=== PATIENT | male | born 1950 | race Caucasian/White ===

== ENCOUNTER 2022-06-22 09:28 | Emergency (ER) | payer OTHER, SELFPAY ==
[2022-06-22] VITALS (21 sets, daily range): BP systolic 98–136; BP diastolic 68–99; PULSE 68–84; RESP 9–16; TEMP 36.6; O2SAT 96–100
--- NOTE | 2022-06-22 09:30 | DI.RAD_ITS ---
Exam(s) XR CHEST 2V PA LATERAL EXAM: XR CHEST 2V PA LATERAL CLINICAL HISTORY: unsteady TECHNIQUE: 2D digital imaging was performed. COMPARISON: No exams were available for comparison FINDINGS: HEART: Normal size. Aorta: Not dilated. PULMONARY VASCULATURE: Normal. LUNGS: Clear. PLEURAL SPACE: No pleural effusion or pneumothorax. BONE:Unremarkable for age. IMPRESSION: No acute abnormality. DATA REPOSITORY: RADIATION DOSE DELIVERED:
--- NOTE | 2022-06-22 09:30 | DI.CT_ITS ---
Exam(s) CT BRAIN NECK CTA EXAM: CT BRAIN NECK CTA CLINICAL HISTORY: dizziness, unsteady, falls. TECHNIQUE: Imaging Protocol: Axial CT angiography was performed with multi-slice acquisition and mu lti-planar and 3D reconstructions. CONTRAST MATERIAL: Intravenous: Omnipaque 350 Contrast volume:structured data in ml COMPARISON: No exams were available for comparison FINDINGS: CT Head W/O and W contrast: Ventricles and Extra axial spaces: Normal in size and morphology for the patient's age. Hemorrhage: None. Cerebral parenchyma: Area of low attenuation seen near the midline in the left occipital lobe. Midline shift: None. Brainstem/Cerebellum: Normal. Calvarium: Normal. Visualized Paranasal sinuses/Mastoids: Mucous retention within right maxillary sinus. Soft Tissues: Unremarkable. Enhancement: Normal. CTA Brain W: Internal Carotid Arteries: Petrous: Normal. Cavernous: Normal. Cerebral: Normal. Middle Cerebral Arteries: Right: No aneurysm, occlusion or significant stenosis. Left: No aneurysm, occlusion or significant stenosis. Anterior Cerebral Arteries: Right: No aneurysm, occlusion or significant stenosis. Left: No aneurysm, occlusion or significant stenosis. Posterior cerebral Arteries: Right: No aneurysm, occlusion or significant stenosis. Left: No aneurysm, occlusion or significant stenosis. Vertebral Arteries: Right: No aneurysm, occlusion or significant stenosis. Left: No aneurysm, occlusion or significant stenosis. Basilar Artery: No aneurysm, occlusion or significant stenosis. CTA Neck W: Common Carotid: Right: Mild calcific plaque at the bulb. No dissection, occlusion or significant stenosis. Left: Mild calcific plaque at the bulb. No dissection, occlusion or significant stenosis. External Carotid: Right: No dissection, occlusion or significant stenosis. Left: No dissection, occlusion or significant stenosis. Internal Carotid: Right: No dissection, occlusion or significant stenosis. Left: No dissection, occlusion or significant stenosis. Vertebral Artery: Right: No dissection, occlusion or significant stenosis. Left: No dissection, occlusion or significant stenosis. Lung Apices: Normal. Bones: Degenerative changes. No acute abnormality. Soft Tissues: Normal. IMPRESSION: 1. Normal CTA examination of the [place]. 2. Area of low attenuation in the left occipital lobe could represent a acute or subacute infarct. R ight maxillary sinus disease. 3. Mild calcific plaque at the common carotid bulbs. No evidence of stenosis or dissection. 4. Findings called to Dr. Rodriguez of the emergency department. RADIATION DOSE DELIVERED: 2,331.57mGy.cm Total DLP DATA REPOSITORY: All CT scans at this facility are submitted to the National Radiology Data Registry (NRDR) Dose Index Registry (DIR) with the [employer] (A[employer]). RADIATION OPTIMIZATION: All CT scans at this facility use at least one of these dose optimization te chniques: automated exposure control; mA and/or kV adjustment per patient size (includes targeted exa ms where dose is matched to clinical indication); or iterative reconstruction.
--- NOTE | 2022-06-22 09:30 | RT.EKG_ITS ---
APPROVED REPORT Exam: Resting ECG Reason for Exam: fatigue Patient Location: E HR:81 bpm ECG Measurements Heart Rate [address] 155 P 52 QRSd 126 QRS -69 QT 400 T -12 QTc 465 Conclusion Sinus rhythm...normal P axis, V-rate 60- 99 Right bundle branch block...QRSd>120, terminal axis(90,270) Inferior infarct, old...Q >35mS, II III aVF sinus rhythm, left axis, RBBB
--- NOTE | 2022-06-22 09:37 | ED.GENADUL_ITS ---
Discharge Plan Disposition Patient Disposition: Home Condition: Stable Discharge Details Clinical Impression: Hyperglycemia, Occipital stroke [facility] Provider: Kenny Castrejon Home Meds and New Rx's Prescriptions: New Trulicity 0.75 mg/0.5 mL pen injector 0.75 mg subcut QWEEK Qty: 2 1RF No Action metformin 1,000 mg tablet 1,000 mg PO DAILY Patient Comments: TAKE ONE TABLET BY MOUTH EVERY DAY atorvastatin 20 mg Tablet 20 mg PO DAILY metoprolol tartrate 50 mg Tablet 50 mg PO BID lisinopril 5 mg Tablet 15 mg PO DAILY hydrochlorothiazide 25 mg Tablet 25 mg PO QAM glipizide 5 mg tablet 5 mg PO DAILY Patient Comments: TAKE ONE TABLET BY MOUTH EVERY DAY empagliflozin 25 mg Tablet 25 mg PO QAM Discharge Instructions Instructions: Ischemic Stroke (DC), Diabetic Hyperglycemia (ED) Additional Instructions: Please take medications as prescribed. Please return to the emergency department for any worsening symptoms. Please follow-up with neurology and your primary care physician. Medical Decision Making 72-year-old male history of hypertension diabetes presents with unsteadiness multiple falls over the last several days feeling generally unwell and having flashing in his visual ackerman intermittent in nature. Patient is nontoxic resting comfortably however was requiring wheelchair to get from car to room due to unsteadiness, cranial nerves II through XII intact, 5 out of 5 strength upper and lower extremities, normal speech. Does have subacute abrasion to bridge of nose and brow line from prior fall on Sunday. Consider intracranial process such as CVA versus ACS versus dehydration versus lecture abnormality versus diabetic complication such as hyper glycemic hyperosmolar state versus infectious etiology such as viral syndrome UTI lower suspicion for pneumonia. Must also consider peripheral vertigo. Screening labs imaging including CT CTA head neck, chest x-ray, urinalysis, trial of light fluids and meclizine. Close reassessment disposition pending results 14: 59 patient resting comfortably no acute distress. Nontoxic nonfocal. Evidence of likely subacute infarct left occipital lobe. Blood sugar downtrending to the 300s. Patient endorses noncompliance with his Tr[facility]icity injection [facility]. I will prescribe him Trulicity he will be given a follow-up appointment with neurology. HPI General Date/Time Provider Initiated Documentation: 06/22/22 09:34 . HPI Narrative: 72-year-old male history of hypertension diabetes presents brought in by son for evaluation of unsteadiness since Sunday feeling unwell, multiple falls, patient was also complaining of flashing lights in bilateral visual ackerman over the last several days intermittent in nature. Related Data Home Medications Medication Instructions Recorded Confirmed atorvastatin 20 mg tablet 20 mg PO DAILY 06/22/22 06/22/22 dulaglutide 0.75 mg/0.5 mL 0.75 mg (0.5 mL) subcut QWEEK #2 mL 06/22/22 subcutaneous pen injector (Trulicity) empagliflozin 25 mg tablet 25 mg PO QAM 06/22/22 06/22/22 glipizide 5 mg tablet 5 mg PO DAILY 06/22/22 06/22/22 hydrochlorothiazide 25 mg tablet 25 mg PO QAM 06/22/22 06/22/22 lisinopril 5 mg tablet 15 mg PO DAILY 06/22/22 06/22/22 metformin 1,000 mg tablet 1,000 mg PO DAILY 06/22/22 06/22/22 metoprolol tartrate 50 mg tablet 50 mg PO BID 06/22/22 06/22/22 Previous Rx's Medication Instructions Recorded dulaglutide 0.75 mg/0.5 mL 0.75 mg (0.5 mL) subcut QWEEK #2 mL 06/22/22 subcutaneous pen injector (Trulicity) Review of Systems Narrative: Review of Systems Constitutional: negative Eyes: negative ENT: negative Cardiovascular: negative Respiratory: negative Gastrointestinal: negative : negative Musculoskeletal: negative Skin: negative Neurologic: Unsteady, falls Psych: negative PFSH All Active Problems (Updated 06/22/22 @ 15:00 by Kenny Castrejon MD) Hyperglycemia (Acute) Occipital stroke (Acute) Social History Smoking/Tobacco Use Status: Former Tobacco Use Smoking risk assessment performed?: Yes Alcohol Intake: current Alcohol Intake frequency: a few times a month Alcohol type: beer Drug use: Never Substance use type: does not use Do you feel safe at home: Yes Do you feel safe in your relationship?: Yes Exam Narrative Exam Narrative: Physical Examination General: alert, awake, cooperative, resting comfortably, no acute distress HEENT: normocephalic, superficial abrasion to brow line and bridge of nose subacute in nature; PERRL, EOM intact, conjunctiva normal; no nasal discharge; moist mucous membranes, oral and pharyngeal mucosa normal, tolerating secretions Neck: supple, trachea midline; full ROM Chest: normal to inspection Respiratory: normal respiratory effort, speaking in full sentences, clear to auscultation, no wheezing, rales or rhonchi Cardiac: regular rate, regular rhythm, S1S2 intact, no murmurs rubs or gallops GI: abdomen soft, non-tender, non-distended; no palpable mass or hepatosplenomegaly Skin: no lesions, rashes or trauma appreciated Neuro: AAOx3, normal speech, moving all extremities cranial nerves II through XII intact, no truncal ataxia however requiring wheelchair to get to room; 5-5 strength upper and lower extremities Psych: Appropriate mood and affect
[2022-06-22 10:11] LABS: Absolute Basophil Count 0.03 10^3/uL (0.0-0.2); Absolute Eosinophil Count 0.16 10^3/uL (0.0-0.7); Absolute Lymphocyte Count 0.81 10^3/uL (1.2-3.4); Absolute Monocyte Count 0.35 10^3/uL (0.1-0.8); Absolute Neutrophil Count 3.85 10^3/uL (1.2-6.7); Basophils % 0.6; Eosinophils % 3.1; HCT 40.4 % (40.0-50.0); Lymphocytes % 15.6; MCH 28.9 pg (27.0-33.0); MCHC 34.7 % (32.0-36.0); MCV 83 fL (80-95); MPV 11.3 fL (8.0-11.0); Monocytes % 6.7; Platelet Count 165 10^3/uL (130-400); RBC 4.85 10^6/uL (4.36-5.78); RDW 12.1 % (11.8-14.1); RDW-SD 36.7 fL
[2022-06-22] MEDS: Normal Saline 500 ML 1000 ML IV (10:26)
[2022-06-22] MEDS: Meclizine 25 MG TAB PO (10:34)
[2022-06-22 10:36] LABS: ALT 12 U/L (16-63); AST 9 U/L (15-37); Albumin 3.5 g/dL (3.4-5.0); Alkaline Phosphatase 89 U/L (46-116); Anion Gap 9.9 mmol/L (3-11); BUN 27 mg/dL (7-18); Bilirubin, Total 0.7 mg/dL (0.2-1.0); CO2 27.1 mmol/L (21.0-32.0); CREATININE 1.7 mg/dL (0.70-1.30); Chloride 94 mmol/L (98-107); Magnesium 2.1 mg/dL (1.8-2.4); Potassium 4.1 mmol/L (3.5-5.1); Sodium 131 mmol/L (136-145); Total Protein 7.3 g/dL (6.4-8.2); Troponin I < 50 ng/L (<or=60)
[2022-06-22 10:37] LABS: ETHANOL BLOOD < 3.0 mg/dL (<10)
[2022-06-22 10:38] LABS: Glucose 600 mg/dL (74-106)
[2022-06-22] MEDS: Insulin REGULAR-Human 100 UNITS/ML UNIT 6 UNITS SC ×2 (10:40→12:57)
[2022-06-22 12:00] LABS: Bilirubin Negative (Negative); Blood Negative (Negative); Clarity Clear (Clear); Glucose >=1000 mg/dL (Negative); Ketones Negative (Negative); Leukocyte Esterase Negative (Negative); Nitrite Negative (Negative); Specific Gravity 1.015 (1.005-1.025); Urobilinogen 0.2 mg/dL (Up to 0.2)
--- NOTE | 2022-06-22 12:15 | DI.MRI_ITS ---
Exam(s) MR BRAIN WO EXAM: MR BRAIN WO CLINICAL HISTORY: abdnormal CT head TECHNIQUE: Multiplanar multisequence MRI of the brain was performed. COMPARISON: CT CT BRAIN NECK CTA from 06/22/2022 FINDINGS: VENTRICLES AND EXTRA AXIAL SPACES: Normal in size and morphology for the patient's age. MIDLINE SHIFT: None. CEREBRAL PARENCHYMA: Area of high signal on T2 and FLAIR images in the posterior left occipital lobe with a mild amount of associated diffusion restriction. There is some peripheral hemosiderin accumul ation. Findings are consistent with a subacute infarct. No additional areas of infarct are seen. T here are minimal white matter changes of small vessel disease. No space-occupying lesion identified. HEMORRHAGE: No acute hemorrhage. BRAINSTEM/CEREBELLUM: Normal. VISUALIZED PARANASAL SINUSES/MASTOIDS:Opacification of the right maxillary sinus. Vasculature: Normal flow void. PITUITARY GLAND: Unremarkable. ORBITS: Unremarkable. IMPRESSION: Subacute infarct in the left occipital lobe. Findings were called to Dr. Rodriguez of theemergency department. DATA REPOSITORY:
[2022-06-22 12:28] LABS: *AMPHETAMINES SCREEN URINE Negative (Negative); *BARBITURATES SCREEN URINE Negative (Negative); *BENZODIAZEPINES SCREEN URINE Negative (Negative); Cannabinoids THC Negative (Negative); Cocaine Screen,Urine Negative (Negative); METHADONE URINE SCREEN Negative (Negative); OPIATES URINE SCREEN Negative (Negative); Tricyclic Antidepressants Negative (Negative)
[2022-06-22] MEDS: Omnipaque 350 MG/ML 100 ML BTL IJ (12:32)
[2022-06-22] MEDS: Normal Saline - Diluent 50 ML VIAL IJ (12:46)
--- NOTE | 2022-06-22 22:47 | NUR.NOTE ---
Referral to Neurology at [facility] per Dr. Ponce for stroke next week. Faxed the referral to Neurology and placed in the care manger's box for follow up assistance.Nursing Note:
== END 2022-06-22 15:19 | disposition home or self-care (01) ==
PROVIDERS: Emergency Provider Emergency Medicine
DX: I63.9 Cerebral infarction, unspecified (principal); E11.65 Type 2 diabetes mellitus with hyperglycemia; I10 Essential (primary) hypertension; S00.31XA Abrasion of nose, initial encounter; S00.81XA Abrasion of other part of head, initial encounter; W19.XXXA Unspecified fall, initial encounter; Z79.85 Long-term (current) use of injectable non-insulin antidiabetic drugs
CPT/HCPCS: 36415; 70496; 70498; 80053; 80307; 93005; 96360; 99285; 70551; 71046; 80320; 81003; 83735; 84443; 84484; 85025; 93010; 99284; J3490

== ENCOUNTER 2023-06-13 04:43 | Outpatient (RCR) | payer OTHER, SELFPAY ==
[2023-05-25] MEDS: Normal Saline Flush 10 ML SYR IVP (08:50)
[2023-05-25 08:57] LABS: Abs Immature Grans 0.07 10^3/uL (0.0-0.06); Absolute Basophil Count 0.06 10^3/uL (0.0-0.2); Absolute Eosinophil Count 0.03 10^3/uL (0.0-0.7); Absolute Lymphocyte Count 1.27 10^3/uL (1.2-3.4); Absolute Monocyte Count 0.89 10^3/uL (0.1-0.8); Absolute Neutrophil Count 4.11 10^3/uL (1.2-6.7); Basophils % 0.9; Eosinophils % 0.5; HCT 28.6 % (40.0-50.0); HGB 9.1 g/dL (13.5-17.5); Immature Grans % 1.1; Lymphocytes % 19.8; MCH 27.2 pg (27.0-33.0); MCHC 31.8 % (32.0-36.0); MCV 86 fL (80-95); MPV 9.6 fL (8.0-11.0); Monocytes % 13.8; Neutrophils % 63.9; Nucleated RBC 0.3 % (0.0-0.3); Platelet Count 408 10^3/uL (130-400); RBC 3.34 10^6/uL (4.36-5.78); RDW 14.2 % (11.8-14.1); RDW-SD 41.8 fL; WBC 6.43 10^3/uL (4.4-10.8)
[2023-05-25 09:20] LABS: ALT 39 U/L (16-63); AST 41 U/L (15-37); Alkaline Phosphatase 91 U/L (46-116); Anion Gap 10.1 mmol/L (3-11); BUN 14 mg/dL (7-18); Bilirubin, Total 0.6 mg/dL (0.2-1.0); CO2 25.9 mmol/L (21.0-32.0); CREATININE 1.5 mg/dL (0.70-1.30); Chloride 100 mmol/L (98-107); Estimated GFR 48.85 (mL/min/1.73m2); FREE T4 1.46 ng/dL (0.76-1.46); Glucose 287 mg/dL (74-106); Magnesium 1.9 mg/dL (1.8-2.4); Potassium 3.9 mmol/L (3.5-5.1); Sodium 136 mmol/L (136-145); TSH 1.77 uIU/Ml (0.36-3.74); Total Protein 7.3 g/dL (6.4-8.2)
[2023-05-25 20:02] LABS: CA 19-9 23 U/mL (<35)
[2023-05-31] MEDS: Normal Saline Flush 10 ML SYR IVP (08:35)
[2023-05-31 09:36] LABS: Abs Immature Grans 0.05 10^3/uL (0.0-0.06); Absolute Eosinophil Count 0.02 10^3/uL (0.0-0.7); Absolute Lymphocyte Count 1.35 10^3/uL (1.2-3.4); Absolute Monocyte Count 0.75 10^3/uL (0.1-0.8); Absolute Neutrophil Count 5.14 10^3/uL (1.2-6.7); Basophils % 1.3; Eosinophils % 0.3; HCT 32.4 % (40.0-50.0); HGB 10.1 g/dL (13.5-17.5); Immature Grans % 0.7; Lymphocytes % 18.2; MCH 27.2 pg (27.0-33.0); MCHC 31.2 % (32.0-36.0); MCV 87 fL (80-95); MPV 9.4 fL (8.0-11.0); Monocytes % 10.1; Neutrophils % 69.4; Platelet Count 421 10^3/uL (130-400); RBC 3.72 10^6/uL (4.36-5.78); RDW 15.4 % (11.8-14.1); RDW-SD 46.6 fL; WBC 7.41 10^3/uL (4.4-10.8)
[2023-05-31 09:57] LABS: ALT 23 U/L (16-63); AST 24 U/L (15-37); Albumin 2.3 g/dL (3.4-5.0); Alkaline Phosphatase 92 U/L (46-116); Anion Gap 14.1 mmol/L (3-11); BUN 40 mg/dL (7-18); Bilirubin, Total 0.9 mg/dL (0.2-1.0); CO2 20.9 mmol/L (21.0-32.0); CREATININE 1.9 mg/dL (0.70-1.30); Calcium 8.8 mg/dL (8.5-10.1); Chloride 98 mmol/L (98-107); Estimated GFR 36.79 (mL/min/1.73m2); Glucose 370 mg/dL (74-106); Magnesium 2.4 mg/dL (1.8-2.4); Potassium 4.7 mmol/L (3.5-5.1); Sodium 133 mmol/L (136-145); TSH 1.28 uIU/Ml (0.36-3.74); Total Protein 8.4 g/dL (6.4-8.2)
[2023-06-01 09:27] LABS: CA 19-9 16 U/mL (<35)
[2023-06-06] MEDS: Normal Saline Flush 10 ML SYR IVP (08:29)
[2023-06-06 08:37] LABS: Abs Immature Grans 0.02 10^3/uL (0.0-0.06); Absolute Basophil Count 0.07 10^3/uL (0.0-0.2); Absolute Eosinophil Count 0.08 10^3/uL (0.0-0.7); Absolute Lymphocyte Count 1.67 10^3/uL (1.2-3.4); Absolute Monocyte Count 0.55 10^3/uL (0.1-0.8); Basophils % 1.3; Eosinophils % 1.5; HCT 30.7 % (40.0-50.0); HGB 9.6 g/dL (13.5-17.5); Immature Grans % 0.4; Lymphocytes % 30.4; MCH 27.4 pg (27.0-33.0); MCHC 31.3 % (32.0-36.0); MCV 88 fL (80-95); MPV 9.6 fL (8.0-11.0); Neutrophils % 56.4; Platelet Count 276 10^3/uL (130-400); RBC 3.51 10^6/uL (4.36-5.78); RDW 16.2 % (11.8-14.1); RDW-SD 50.6 fL; WBC 5.49 10^3/uL (4.4-10.8)
[2023-06-06 09:12] LABS: ALT 17 U/L (16-63); AST 23 U/L (15-37); Albumin 2.3 g/dL (3.4-5.0); Alkaline Phosphatase 88 U/L (46-116); Anion Gap 10.5 mmol/L (3-11); BUN 23 mg/dL (7-18); Bilirubin, Total 0.7 mg/dL (0.2-1.0); CO2 22.5 mmol/L (21.0-32.0); CREATININE 1.3 mg/dL (0.70-1.30); Calcium 8.4 mg/dL (8.5-10.1); Chloride 106 mmol/L (98-107); Estimated GFR 58.01 (mL/min/1.73m2); FREE T4 1.37 ng/dL (0.76-1.46); Glucose 145 mg/dL (74-106); Magnesium 1.6 mg/dL (1.8-2.4); Sodium 139 mmol/L (136-145); Total Protein 7.9 g/dL (6.4-8.2)
[2023-06-13] MEDS: Normal Saline Flush 10 ML SYR IVP (08:05)
[2023-06-13 08:32] LABS: Abs Immature Grans 0.06 10^3/uL (0.0-0.06); Absolute Basophil Count 0.04 10^3/uL (0.0-0.2); Absolute Eosinophil Count 0.01 10^3/uL (0.0-0.7); Absolute Lymphocyte Count 1.32 10^3/uL (1.2-3.4); Absolute Monocyte Count 0.35 10^3/uL (0.1-0.8); Absolute Neutrophil Count 1.59 10^3/uL (1.2-6.7); Basophils % 1.2; Eosinophils % 0.3; HCT 31.2 % (40.0-50.0); HGB 9.6 g/dL (13.5-17.5); Immature Grans % 1.8; Lymphocytes % 39.2; MCH 27.1 pg (27.0-33.0); MCHC 30.8 % (32.0-36.0); MCV 88 fL (80-95); Monocytes % 10.4; Neutrophils % 47.1; Nucleated RBC 1.2 % (0.0-0.3); Platelet Count 172 10^3/uL (130-400); RBC 3.54 10^6/uL (4.36-5.78); RDW 14.9 % (11.8-14.1); RDW-SD 47.5 fL; WBC 3.37 10^3/uL (4.4-10.8)
[2023-06-13 09:02] LABS: ALT 57 U/L (16-63); AST 29 U/L (15-37); Albumin 2.6 g/dL (3.4-5.0); Alkaline Phosphatase 87 U/L (46-116); Anion Gap 8.1 mmol/L (3-11); BUN 25 mg/dL (7-18); Bilirubin, Total 0.4 mg/dL (0.2-1.0); CO2 27.9 mmol/L (21.0-32.0); CREATININE 1.3 mg/dL (0.70-1.30); Calcium 8.8 mg/dL (8.5-10.1); Chloride 103 mmol/L (98-107); Estimated GFR 58.01 (mL/min/1.73m2); FREE T4 1.06 ng/dL (0.76-1.46); Glucose 165 mg/dL (74-106); Magnesium 1.8 mg/dL (1.8-2.4); Potassium 4.4 mmol/L (3.5-5.1); Sodium 139 mmol/L (136-145); TSH 1.98 uIU/Ml (0.36-3.74); Total Protein 7.9 g/dL (6.4-8.2)
[2023-06-15 12:12] LABS: CA 19-9 18 U/mL (<35)
== END 2023-06-24 23:59 | disposition home or self-care (01) ==
LOC: INF 04:43
PROVIDERS: Visit Provider Internal Medicine Hematology & Oncology
DX: C22.1 Intrahepatic bile duct carcinoma (principal); Z79.899 Other long term (current) drug therapy; Z45.2 Encounter for adjustment and management of vascular access device
CPT/HCPCS: 36591; 80053; 83735; 84439; 84443; 85025; 86301

== ENCOUNTER 2023-07-06 00:40 | Outpatient (RCR) | payer OTHER, SELFPAY ==
[2023-06-29] MEDS: Normal Saline Flush 10 ML SYR IVP (09:11)
[2023-06-29 09:26] LABS: Abs Immature Grans 0.01 10^3/uL (0.0-0.06); Absolute Basophil Count 0.05 10^3/uL (0.0-0.2); Absolute Eosinophil Count 0.12 10^3/uL (0.0-0.7); Absolute Lymphocyte Count 0.79 10^3/uL (1.2-3.4); Absolute Monocyte Count 0.87 10^3/uL (0.1-0.8); Absolute Neutrophil Count 3.33 10^3/uL (1.2-6.7); Eosinophils % 2.3; HCT 30.7 % (40.0-50.0); HGB 9.9 g/dL (13.5-17.5); Immature Grans % 0.2; Lymphocytes % 15.3; MCH 28.1 pg (27.0-33.0); MCHC 32.2 % (32.0-36.0); MCV 87 fL (80-95); MPV 9.5 fL (8.0-11.0); Monocytes % 16.8; Neutrophils % 64.4; Platelet Count 448 10^3/uL (130-400); RBC 3.52 10^6/uL (4.36-5.78); RDW 17.4 % (11.8-14.1); RDW-SD 54.8 fL; WBC 5.17 10^3/uL (4.4-10.8)
[2023-06-29 09:50] LABS: ALT 17 U/L (16-63); AST 13 U/L (15-37); Albumin 2.8 g/dL (3.4-5.0); Alkaline Phosphatase 88 U/L (46-116); Anion Gap 10.4 mmol/L (3-11); BUN 24 mg/dL (7-18); Bilirubin, Total 0.5 mg/dL (0.2-1.0); CO2 26.6 mmol/L (21.0-32.0); CREATININE 1.6 mg/dL (0.70-1.30); Calcium 8.7 mg/dL (8.5-10.1); Chloride 100 mmol/L (98-107); Estimated GFR 45.21 (mL/min/1.73m2); FREE T4 1.14 ng/dL (0.76-1.46); Glucose 254 mg/dL (74-106); Magnesium 2.1 mg/dL (1.8-2.4); Potassium 4.2 mmol/L (3.5-5.1); Sodium 137 mmol/L (136-145); TSH 1.82 uIU/Ml (0.36-3.74); Total Protein 7.5 g/dL (6.4-8.2)
[2023-06-29 23:27] LABS: CA 19-9 15 U/mL (<35)
[2023-07-06] MEDS: Normal Saline Flush 10 ML SYR IVP (08:29)
[2023-07-06 08:55] LABS: Abs Immature Grans 0.11 10^3/uL (0.0-0.06); Absolute Basophil Count 0.02 10^3/uL (0.0-0.2); Absolute Lymphocyte Count 0.59 10^3/uL (1.2-3.4); Basophils % 0.5; HCT 28.1 % (40.0-50.0); HGB 9.1 g/dL (13.5-17.5); Immature Grans % 2.9; Lymphocytes % 15.7; MCH 27.6 pg (27.0-33.0); MCHC 32.4 % (32.0-36.0); MCV 85 fL (80-95); MPV 9.1 fL (8.0-11.0); Monocytes % 13.3; Neutrophils % 67.6; Nucleated RBC 0.8 % (0.0-0.3); Platelet Count 297 10^3/uL (130-400); RDW 15.9 % (11.8-14.1); RDW-SD 49.1 fL; WBC 3.75 10^3/uL (4.4-10.8)
[2023-07-06 09:00] LABS: Absolute Neutrophil Count 2.54 10^3/uL (1.2-6.7)
[2023-07-06 09:19] LABS: ALT 22 U/L (16-63); AST 17 U/L (15-37); Albumin 2.7 g/dL (3.4-5.0); Alkaline Phosphatase 93 U/L (46-116); BUN 22 mg/dL (7-18); Bilirubin, Total 0.3 mg/dL (0.2-1.0); CREATININE 1.3 mg/dL (0.70-1.30); Calcium 8.4 mg/dL (8.5-10.1); Chloride 104 mmol/L (98-107); Estimated GFR 58.01 (mL/min/1.73m2); Glucose 204 mg/dL (74-106); Magnesium 1.6 mg/dL (1.8-2.4); Potassium 3.6 mmol/L (3.5-5.1); Sodium 140 mmol/L (136-145); TSH 1.26 uIU/Ml (0.36-3.74); Total Protein 7.2 g/dL (6.4-8.2)
[2023-07-06 21:20] LABS: CA 19-9 16 U/mL (<35)
== END 2023-07-24 23:59 | disposition home or self-care (01) ==
LOC: INF 00:40
PROVIDERS: Visit Provider Internal Medicine Hematology & Oncology
DX: C22.1 Intrahepatic bile duct carcinoma (principal); Z79.899 Other long term (current) drug therapy
CPT/HCPCS: 36591; 80053; 83735; 84439; 84443; 85025; 86301

== ENCOUNTER 2023-11-02 00:52 | Outpatient (RCR) | payer OTHER, SELFPAY ==
[2023-11-02] MEDS: Normal Saline Flush 10 ML SYR IVP (13:45)
[2023-11-02 13:57] LABS: Abs Immature Grans 0.01 10^3/uL (0.0-0.06); Absolute Basophil Count 0.02 10^3/uL (0.0-0.2); Absolute Eosinophil Count 0.06 10^3/uL (0.0-0.7); Absolute Lymphocyte Count 0.23 10^3/uL (1.2-3.4); Absolute Monocyte Count 0.48 10^3/uL (0.1-0.8); Basophils % 0.5 %; Eosinophils % 1.5 %; HCT 36.2 % (40.0-50.0); HGB 11.5 g/dL (13.5-17.5); Immature Grans % 0.3 %; Lymphocytes % 5.8 %; MCH 26.7 pg (27.0-33.0); MCHC 31.8 % (32.0-36.0); MCV 84 fL (80-95); MPV 10.2 fL (8.0-11.0); Neutrophils % 79.9 %; Platelet Count 146 10^3/uL (130-400); RDW 13.6 % (11.8-14.1); RDW-SD 41.6 fL
[2023-11-02 14:19] LABS: ALT 11 U/L (16-63); AST 12 U/L (15-37); Albumin 3.2 g/dL (3.4-5.0); Alkaline Phosphatase 99 U/L (46-116); Anion Gap 10.4 mmol/L (3-11); BUN 26 mg/dL (7-18); CO2 23.6 mmol/L (21.0-32.0); CREATININE 1.3 mg/dL (0.70-1.30); Calcium 9.2 mg/dL (8.5-10.1); Chloride 100 mmol/L (98-107); Estimated GFR 58.01 (mL/min/1.73m2); Glucose 294 mg/dL (74-106); Potassium 3.9 mmol/L (3.5-5.1); Sodium 134 mmol/L (136-145); Total Protein 7.3 g/dL (6.4-8.2)
[2023-11-05 11:13] LABS: CA 19-9 33 U/mL (<35)
== END 2023-11-24 23:59 | disposition home or self-care (01) ==
LOC: INF 00:52
PROVIDERS: Visit Provider Internal Medicine Hematology & Oncology
DX: C22.1 Intrahepatic bile duct carcinoma (principal); Z79.899 Other long term (current) drug therapy; Z45.2 Encounter for adjustment and management of vascular access device
CPT/HCPCS: 36591; 80053; 85025; 86301

== ENCOUNTER 2024-03-13 02:28 | Outpatient (RCR) | payer OTHER, SELFPAY ==
[2024-03-13] MEDS: Normal Saline Flush 10 ML SYR IVP (11:21)
[2024-03-13 11:36] LABS: Abs Immature Grans 0.01 10^3/uL (0.0-0.06); Absolute Basophil Count 0.02 10^3/uL (0.0-0.2); Absolute Eosinophil Count 0.12 10^3/uL (0.0-0.7); Absolute Lymphocyte Count 0.54 10^3/uL (1.2-3.4); Absolute Monocyte Count 0.37 10^3/uL (0.1-0.8); Absolute Neutrophil Count 4.44 10^3/uL (1.2-6.7); Basophils % 0.4 %; Eosinophils % 2.2 %; HCT 33.9 % (40.0-50.0); HGB 11.2 g/dL (13.5-17.5); Immature Grans % 0.2 %; Lymphocytes % 9.8 %; MCH 28.3 pg (27.0-33.0); MCV 86 fL (80-95); MPV 9.8 fL (8.0-11.0); Monocytes % 6.7 %; Neutrophils % 80.7 %; Platelet Count 193 10^3/uL (130-400); RBC 3.96 10^6/uL (4.36-5.78); RDW 13.2 % (11.8-14.1); RDW-SD 41.1 fL
[2024-03-13 11:55] LABS: ALT 55 U/L (16-63); AST 29 U/L (15-37); Albumin 2.9 g/dL (3.4-5.0); Alkaline Phosphatase 252 U/L (46-116); Anion Gap 10.4 mmol/L (3-11); BUN 29 mg/dL (7-18); Bilirubin, Total 0.46 mg/dL (0.2-1.0); CO2 23.6 mmol/L (21.0-32.0); CREATININE 1.5 mg/dL (0.70-1.30); Calcium 8.9 mg/dL (8.5-10.1); Chloride 101 mmol/L (98-107); Estimated GFR 48.55 (mL/min/1.73m2); Glucose 434 mg/dL (74-106); Potassium 4.7 mmol/L (3.5-5.1); Sodium 135 mmol/L (136-145); Total Protein 7.2 g/dL (6.4-8.2)
[2024-03-18 12:43] LABS: CA 19-9 45 U/mL (<35)
== END 2024-03-25 23:59 | disposition home or self-care (01) ==
LOC: INF 02:28
PROVIDERS: Visit Provider Internal Medicine Hematology & Oncology
DX: C22.1 Intrahepatic bile duct carcinoma (principal); Z45.2 Encounter for adjustment and management of vascular access device
CPT/HCPCS: 36591; 80053; 85025; 86301

== ENCOUNTER 2024-05-29 09:36 | Outpatient (RCR) | payer OTHER, SELFPAY ==
[2024-05-29 11:52] LABS: Abs Immature Grans 0.03 10^3/uL (0.0-0.06); Absolute Basophil Count 0.02 10^3/uL (0.0-0.2); Absolute Eosinophil Count 0.05 10^3/uL (0.0-0.7); Absolute Lymphocyte Count 0.72 10^3/uL (1.2-3.4); Absolute Monocyte Count 0.51 10^3/uL (0.1-0.8); Absolute Neutrophil Count 6.77 10^3/uL (1.2-6.7); Basophils % 0.2 %; Eosinophils % 0.6 %; HCT 37.4 % (40.0-50.0); Immature Grans % 0.4 %; Lymphocytes % 8.9 %; MCHC 32.1 % (32.0-36.0); MCV 87 fL (80-95); Monocytes % 6.3 %; Neutrophils % 83.6 %; Platelet Count 214 10^3/uL (130-400); RBC 4.29 10^6/uL (4.36-5.78); RDW 12.7 % (11.8-14.1); RDW-SD 40.5 fL
[2024-05-29 12:07] LABS: ALT 59 U/L (16-63); AST 27 U/L (15-37); Alkaline Phosphatase 251 U/L (46-116); Anion Gap 11.9 mmol/L (3-11); BUN 25 mg/dL (7-18); Bilirubin, Total 0.45 mg/dL (0.2-1.0); CO2 23.1 mmol/L (21.0-32.0); CREATININE 1.3 mg/dL (0.70-1.30); Calcium 8.9 mg/dL (8.5-10.1); Chloride 106 mmol/L (98-107); Estimated GFR 57.65 (mL/min/1.73m2); Glucose 229 mg/dL (74-106); Potassium 4.3 mmol/L (3.5-5.1); Sodium 141 mmol/L (136-145); Total Protein 7.4 g/dL (6.4-8.2)
== END 2024-06-23 23:59 | disposition home or self-care (01) ==
LOC: INF 09:36
PROVIDERS: Visit Provider Internal Medicine Hematology & Oncology
DX: C22.1 Intrahepatic bile duct carcinoma (principal)
CPT/HCPCS: 36591; 80053; 85025

== ENCOUNTER 2025-02-15 15:30 | Emergency (ER) | payer OTHER, SELFPAY ==
[2025-02-15] VITALS (43 sets, daily range): BP systolic 90–166; BP diastolic 53–117; PULSE 95–129; RESP 14–25; TEMP 36.7; O2SAT 92–99
--- NOTE | 2025-02-15 15:30 | DI.RAD_ITS ---
Exam(s) XR PORTABLE CHEST AP EXAM: XR PORTABLE CHEST AP CLINICAL HISTORY: hypotension TECHNIQUE: 2D digital imaging was performed. COMPARISON: No exams were available for comparison FINDINGS: There is a right-sided port with tip in the lower SVC. Overlying moderate ring leads. LUNGS: Suboptimal pulmonary inflation . increased basilar densities. Atelectasis versus pneumonia. No pleural abnormality seen. HEART: Normal size. AORTA: Normal diameter. Calcification at the arch. BONES: Unremarkable for age. Soft tissues: Unremarkable. IMPRESSION: Limited exam due to poor pulmonary inflation. Increased basilar densities, atelectasis versus infiltrates. Clinical correlation recommended. The preliminary [facility] report was reviewed. DATA REPOSITORY: RADIATION DOSE DELIVERED:
--- NOTE | 2025-02-15 15:30 | RT.EKG_ITS ---
APPROVED REPORT Exam: Resting ECG Reason for Exam: dizzy Patient Location: E HR:125 bpm ECG Measurements Heart Rate 125 AXIS PA 143 P -3 QRSd 115 QRS -94 QT 329 T 11 QTc 475 Conclusion Sinus tachycardia...rate> 99 Right bundle branch block...QRSd>120, terminal axis(90,270) Inferior infarct, old...Q >35mS, II III aVF No STEMI
--- NOTE | 2025-02-15 16:15 | ED.GENADUL_ITS ---
Discharge Plan Disposition Patient Disposition: Transfer-Acute Inpatient Care Specific Acute Inpt Facility: [facility] Discharge Details Clinical Impression: Shock, Hemorrhage, intra-abdominal, Leukocytosis, Acute renal failure, Transaminitis, Pleural effusion on right, Acidosis, lactic Primary Care Provider: Unknown,Unknown ED Provider: Binh Cast Home Meds and New Rx's Prescriptions: No Action metformin 1,000 mg tablet 1,000 mg PO DAILY Patient Comments: TAKE ONE TABLET BY MOUTH EVERY DAY atorvastatin 20 mg Tablet 20 mg PO DAILY metoprolol tartrate 50 mg Tablet 50 mg PO BID lisinopril 5 mg Tablet 15 mg PO DAILY hydrochlorothiazide 25 mg Tablet 25 mg PO QAM glipizide 5 mg tablet 5 mg PO DAILY Patient Comments: TAKE ONE TABLET BY MOUTH EVERY DAY empagliflozin 25 mg Tablet 25 mg PO QAM Trulicity 0.75 mg/0.5 mL pen injector 0.75 mg subcut QWEEK Qty: 2 1RF Discharge Instructions Instructions: Kidney Failure, Bleeding After Surgery HPI General Date/Time Provider Initiated Documentation: 02/15/25 15:36 . HPI Narrative: MDM/Narrative: 74-year-old male postop day 1 hepatic lesion, history of cholangiocarcinoma, presents for evaluation of syncope. Initial presentation stable for hypotension and tachycardia. Bedside ultrasound was used for FAST exam which showed no free fluid in the abdomen. Patient endorses chills since last night as well as generalized weakness/abdominal pain. High concern for postoperative infection and blood cultures ordered, per Rule out abscess as well as fluid resuscitation of 2 L IV crystalloid ordered. Will obtain broad screening labs including urinalysis as well as chest x-ray. Based on findings of hemoglobin patient hematocrit, will consider possible postoperative bleeding, think this is most likely given laparoscopic procedure reported history more concerning for infectious etiology. Out of abundance of caution we will order type and screen, low threshold for empiric for transfusion should patient have further hemodynamic DECOMPENSATION. Will also consider urinary embolism, and sometimes rule out as cause of persistent tachycardia and syncope in a postoperative patient ED course: Initial lab values are notable for significant concerning findings. Significantly elevated lactate of 74, acute renal failure with a creatinine of 4.4 and GFR 12 (baseline of 1.13 on 11/12/24 for this patient), leukocytosis of 14, hemoglobin is 12. Significant concern for severe sepsis for this patient. Patient still maintaining his maps at this time cannot start pressors, will continue with fluid resuscitation. Given stable H&H as compared department with labs performed yesterday, and a normal FAST exam I am less concern for acute hemorrhage, however patient will still need CT imaging to assess for possible surgical complications such as bleeding, abscess, thrombosis. Will obtain CT chest abdomen pelvis, to assess for pulmonary embolism as well as intrahepatic abnormalities. 1720 Case discussed with diagnostic imaging, states that they are unwilling to perform a CAT scan at this time given the patient's renal labs. I asked them to forward me to the radiologist decision-maker as patient must have emergent imaging given undifferentiated shock with severe organ dysfunction. [address] Pennington of radiology, following discussion of risk versus benefits for the patient is in agreement that CT scan may be performed. [address] [facility] who has notified me of the critical findings of hemoperitoneum as well as multiple liver hematomas, and a right- sided pleural effusion. [facility] center paged. [address] Tay of [facility] emergency department who accepts patient as an ED to ED transfer for further management, interventional radiology is aware of the patient's impending transfer. Disposition: Transfer to [facility] HPI: 74-year-old male with past medical history cholangiocarcinoma, ascending stage I. Perforated laparoscopic thermal ablation hepatic tumor performed at [facility] yesterday, presents for evaluation of episode of syncope. Patient states that since last night experiencing chills and generalized weakness. Today while attempting to get off the couch, suddenly send him to the his right laparoscopic port site. Patient notes minimal abdominal pain however continued chills and notes. Denies any associated chest pain, shortness of breath, dysuria, concerning symptoms. ROS: Negative besides as mentioned above Exam: Gen: A&O NAD, elderly male appears uncomfortable HEENT: NCAT, EOMI, not icteric. External ears normal. No rhinorrhea. Moist mucous membranes. Neck: Supple, full range of motion, no observable masses, No meningeal sign. Lungs: No Respiratory distress. CV: RRR, no edema. Abdomen: Soft, nondistended, No rebound tenderness. Multiple laparoscopic port site bandages which are clean dry and intact. MSK: No joint swelling, no redness. Skin: No rashes, petechiae, lesions. Mild jaundice diffusely Neuro: Normal Gait, Grossly intact. Psych: Appropriate for situation. Rhythm: sinus tachycardia Rate: 125 [place]: Normal axis Intervals: Normal intervals Other findings: No acute ST segment or T wave changes to suggest acute ischemia. Labs: 02/15/25 16:55 Blood Blood Culture - Pending 02/15/25 16:15 Blood Blood Culture - Pending Laboratory Tests Range/Units 02/15/25 02/15/25 16:15 17:00 WBC (4.4-10.8) 10^3/uL 14.24 H RBC (4.36-5.78) 10^6/uL 4.00 L Hgb (13.5-17.5) g/dL 11.4 L Hct (40.0-50.0) % 34.8 L MCV (80-95) fL 87 MCH (27.0-33.0) pg 28.5 MCHC (32.0-36.0) % 32.8 RDW (11.8-14.1) % 14.6 H Plt Count (130-400) 10^3/uL 117 L MPV (8.0-11.0) fL 10.7 Immature Gran % % 0.6 Neutrophils % % 88.2 Lymphocytes % % 3.4 Monocytes % % 7.7 Eosinophils % % 0.0 Basophils % % 0.1 Nucleated RBC % (0.0-0.3) % 0.0 Absolute Neutrophils (1.2-6.7) 10^3/uL 12.56 H Absolute Lymphocytes (1.2-3.4) 10^3/uL 0.48 L Absolute Monocytes (0.1-0.8) 10^3/uL 1.10 H Absolute Eosinophils (0.0-0.7) 10^3/uL 0.00 Absolute Basophils (0.0-0.2) 10^3/uL 0.01 PT (9.1-11.1) sec 12.1 H INR (0.9-1.1) 1.2 H APTT (20.6-30.2) sec 28.0 VBG pH (7.31-7.41) 7.27 L VBG pCO2 (41-51) mmHg 32 L VBG pO2 mmHg 44 VBG HCO3 (23-28) mmol/L 15 L VBG Total CO2 (24-29) mmol/L 14 L VBG O2 Saturation % 75 VBG Base Excess (-2-3) mmol/L -12 L VBG Lactate (<or=2.0) mmol/L 7.4 H* Sodium (136-145) mmol/L 129 L Potassium (3.5-5.1) mmol/L 5.3 H Chloride (98-107) mmol/L 102 Carbon Dioxide (20.0-31.0) mmol/L 14.5 L Anion Gap (3-11) mmol/L 12.5 H BUN (9-23) mg/dL 63 H Creatinine (0.73-1.18) mg/dL 4.49 H* Est GFR (CKD-EPI 2020) (mL/min/1.73m2) 12.87 Glucose (74-106) mg/dL 357 H Calcium (8.3-10.6) mg/dL 9.5 Magnesium (1.6-2.6) mg/dL 2.0 Total Bilirubin (0.2-1.2) mg/dL 2.10 H AST (<34) U/L 871 H ALT (10-49) U/L 1419 H Alkaline Phosphatase (46-116) U/L 303 H Troponin I (<54) ng/L 18 18 NT-Pro-B Natriuret Pep (<300) pg/mL 1362 H Total Protein (5.7-8.2) g/dL 6.2 Albumin (3.4-5.0) g/dL 3.3 L Lipase (<53) U/L 19 ABO/Rh A Positive Antibody Screen NEGATIVE Radiology: Initial report created on 02/15/2025 6:32:54 PM EST: PROCEDURE INFORMATION: Exam: CTA Chest With Contrast CTA Abdomen With Contrast Exam date and time: 02/15/2025 6:00 PM Age: 74 years old Clinical indication: Other: Post op liver mass ablation, now hypotensive; Hypotension; Prior surgery; Surgery date: Post-operative (0-2 days) TECHNIQUE: Imaging protocol: Computed tomographic angiography of the chest with contrast. E xam focused on the arteries. Computed tomographic angiography of the abdomen with contrast. Exam focused on the arteries. 3D rendering (Not supervised by radiologist): MIP and/or 3D reconstructed images were created by the technologist. Contrast material: OMNIPAQUE 350; Contrast volume: 75 ml; Contrast route: INTRAVENOUS (IV); COMPARISON: CR XR PORTABLE CHEST AP 02/15/2025 5:05 PM FINDINGS: Tubes, catheters and devices: Right-sided Port-A-Cath in place. RACHNA RANDLE Preliminary Radiology Report Page 2 of 3 VASCULATURE: Pulmonary arteries: Normal. No pulmonary emboli. Aorta: No aortic aneurysm. No aortic dissection. Celiac and mesenteric arteries: No occlusion or significant stenosis. Renal arteries: No occlusion or significant stenosis. Veins: The right portal vein is not visualized, presumed post embolic change. CHEST: Lungs: There is a moderate-sized right pleural effusion with moderate atelectasis. Mild left lower lobe and lingular atelectasis noted. Pleural spaces: See Lungs finding. Heart: Unremarkable. No cardiomegaly. No pericardial effusion. Coronary arteries: Coronary artery calcifications/stents identified. ABDOMEN AND PELVIS: Liver: There are large geographic areas of decreased perfusion involving the liver. Anterior segment right lobe 1 region measures up to 7.4 cm. Posterior segment right lobe a 2nd dominant lesion measures 8.3 cm. There is heterogeneous hepatic perfusion and mild perihepatic fluid. No active hemorrhage is identified. There are stippled areas of radiopaque material consistent with embolization procedure within the liver. Gallbladder and biliary ducts: Unremarkable. No calcified stones. No ductal dilation. Pancreas: Unremarkable. No mass. No ductal dilation. Spleen: Unremarkable. No splenomegaly. Adrenal glands: Small left adrenal low-density lesion 1.6 cm. Kidneys: Unremarkable kidneys. No solid mass. No hydronephrosis. Stomach and bowel: Unremarkable. No obstruction. No mucosal thickening. Intraperitoneal space: There is moderate free fluid present in the deep pelvis. Attenuation is more dense than expected for simple free fluid. Urinary bladder: Contrast present in the bladder presumably from previous injection. Lymph nodes: Unremarkable. No enlarged lymph nodes. Bones/joints: Left hip prosthesis. Status post methacrylate injection T11. T12 compression deformity noted, nonacute. Soft tissues: There is a fat density lesion in the left thoracic paraspinous musculature extending to the subcapsular level consistent with lipoma. Mild gynecomastia. Other findings: Moderate atherosclerotic change noted in the vasculature. IMPRESSION: 1. Moderate-sized right effusion with atelectasis. 2. Ascites with increased density of concern for associated hemoperitoneum. There is perihepatic fluid. No definite source of hemorrhage is identified. Thank you for allowing us to participate in the care of your patient. Dictated and Authenticated by: Crista Monroy MD Addendum created by Crista Monroy MD on 02/15/2025 6:38:24 PM EST: I discussed case findings with Binh Cast 02/15/2025 6:35 PM EST. On chest CTA the initial dynamic phase does reveal some increased attenuation within the areas of hepatic embolization, possible hematomas. Related Data Home Medications Medication Instructions Recorded Confirmed atorvastatin 20 mg tablet 20 mg PO DAILY 06/22/2205/26 dulaglutide 0.75 mg/0.5 mL 0.75 mg (0.5 mL) subcut QWE EK #2 mL 06/22/22 subcutaneous pen injector (Trulicity) empagliflozin 25 mg tablet 25 mg PO QAM 06/22/2206/22 glipizide 5 mg tablet 5 mg PO DAILY 06/22/2206/22 hydrochlorothiazide 25 mg tablet 25 mg PO QAM 06/22/22 06/22/22 lisinopril 5 mg tablet 15 mg PO DAILY 06/22/2205/26 metformin 1,000 mg tablet 1,000 mg PO DAILY 06/22/22 0 06/22/22 metoprolol tartrate 50 mg tablet 50 mg PO BID 06/22/22 06/22/22 Previous Rx's Medication Instructions Recorded dulaglutide 0.75 mg/0.5 mL 0.75 mg (0.5 mL) subcut QWE EK #2 mL 06/22/22 subcutaneous pen injector (Trulicity) Allergies Allergy/AdvReac Type Severity Reaction Status Date / Time No Known Allergies Allergy Verified 02/15/25 15:40 General Stated Complaint: [id number] GLORIA: 3 Course Vital Signs Vital signs: Vital Signs Temperature 36.7 C 02/15/25 15:32 Pulse 129 H 02/15/25 15:32 Respiratory Rate 20 11/23/25 15:32 Blood Pressure 90/58 L 02/15/25 15:32 Pulse Oximetry 93 02/15/25 15:32 Temperature 36.7 C 02/15/25 15:32 Temperature Source Temporal Artery Scan 02/15/25 15:32 Pulse 129 H 02/15/25 15:32 Respiratory Rate 20 02/15/25 15:32 Blood Pressure 90/58 L 02/15/25 15:32 Pulse Oximetry 93 02/15/25 15:32 Oxygen Delivery Method Room Air 02/15/25 15:32 Oxygen Flow Rate 0 02/15/25 15:32 Pain Level 8 02/15/25 15:32 Lab/Test Results Lab/Test Results: 02/15/25 15:39 Blood Blood Culture - Pending 02/15/25 15:39 Blood Blood Culture - Pending Critical Care Time Critical Care Time Attestation: Upon my evaluation, this patient had a high probability of imminent or life- threatening deterioration due to shock, which required my direct attention, intervention, and personal management. I have personally provided 60 minutes of critical care time exclusive of time spent on separately billable procedures. Time includes review of laboratory data, radiology results, discussion with consultants, and monitoring for p otential decompensation. Interventions were performed as documented above, including monitoring of critical vital signs, ordering critical medications from bedside, and re-assessing effectiveness, repeating critical exam findings, and reviewing patients' chart. PFSH All Active Problems (Updated 02/15/25 @ 19:15 by Binh Cast MD) Acidosis, lactic (Acute) Pleural effusion on right (Acute) Transaminitis (Acute) Acute renal failure (Acute) Leukocytosis (Acute) Hemorrhage, intra-abdominal (Acute) Shock (Acute) Social History Smoking/Tobacco Use Status: Former Tobacco Use Smoking risk assessment performed?: Yes Alcohol Intake: former Drug use: Never Substance use type: does not use Do you feel safe at home: Yes Do you feel safe in your relationship?: Yes
[2025-02-15 16:29] LABS: BE (Venous) -12 mmol/L (-2-3); HCO3 (Venous) 15 mmol/L (23-28); O2 Sat (Venous) 75 %; TCO2 (Venous) 14 mmol/L (24-29); pCO2 (Venous) 32 mmHg (41-51); pO2 (Venous) 44 mmHg
[2025-02-15 16:30] LABS: Abs Immature Grans 0.08 10^3/uL (0.0-0.06); HCT 34.8 % (40.0-50.0); HGB 11.4 g/dL (13.5-17.5); Immature Grans % 0.6 %; MCH 28.5 pg (27.0-33.0); MCHC 32.8 % (32.0-36.0); MCV 87 fL (80-95); MPV 10.7 fL (8.0-11.0); Platelet Count 117 10^3/uL (130-400); RBC 4.00 10^6/uL (4.36-5.78); RDW 14.6 % (11.8-14.1); RDW-SD 46.7 fL; WBC 14.24 10^3/uL (4.4-10.8)
[2025-02-15 16:52] LABS: INR 1.2 (0.9-1.1); PTT Activated 28.0 sec (20.6-30.2); Prothrombin Time 12.1 sec (9.1-11.1)
[2025-02-15 16:54] LABS: Troponin I 18 ng/L (<54)
[2025-02-15 16:56] LABS: Lipase 19 U/L (<53)
[2025-02-15 16:57] LABS: Magnesium 2.0 mg/dL (1.6-2.6)
[2025-02-15] MEDS: CEFEPIME 2 GM in Normal Saline 100 ML IVPB (16:58)
[2025-02-15] MEDS: Normal Saline 1,000 ML 2000 ML IV (16:59)
[2025-02-15 17:15] LABS: ALT 1419 U/L (10-49); AST 871 U/L (<34); Albumin 3.3 g/dL (3.4-5.0); Alkaline Phosphatase 303 U/L (46-116); Anion Gap 12.5 mmol/L (3-11); BUN 63 mg/dL (9-23); Bilirubin, Total 2.10 mg/dL (0.2-1.2); CO2 14.5 mmol/L (20.0-31.0); Calcium 9.5 mg/dL (8.3-10.6); Chloride 102 mmol/L (98-107); Glucose 357 mg/dL (74-106); Potassium 5.3 mmol/L (3.5-5.1); Sodium 129 mmol/L (136-145); Total Protein 6.2 g/dL (5.7-8.2)
--- NOTE | 2025-02-15 17:15 | DI.CT_ITS ---
Exam(s) CT CHEST PE ABD PELVIS W EXAM: CT CHEST PE ABD PELVIS W CLINICAL HISTORY: post op liver mass ablation, now hypotensive. TECHNIQUE: Imaging Protocol: Axial computed tomography images with coronal and sagittal reformatted images were created and reviewed. Computer aided detection (CAD) was utilized. CONTRAST MATERIAL: Intravenous: Omnipaque 350 Contrast volume:75 ml Oral: no COMPARISON: CT CT BRAIN NECK CTA from 06/22/2022 CR XR CHEST 2V PA LATERAL from 06/22/2022 CR,XR XR PORTABLE CHEST AP from 02/15/2025 FINDINGS: CHEST: Pulmonary parenchyma: No consolidation. No dominant measurable mass. Tracheobronchial tree: No bronchiectasis. No mucous plugging.No bronchial wall thickening. Pleura: No pneumothorax. Moderate-sized right pleural effusion with adjacent atelectasis. Minimal left lower lobe and lingular atelectasis. Mediastinum: Within normal limits. Pulmonary arteries: No visible emboli. Cardiovascular: Normal heart size. Coronary artery calcifications are present. No pericardial effusion. Thoracic aorta non-dilated. Bones: High-density material noted within T11. Degenerative changes. Mild T12 compression fracture. Soft tissues: Port over right upper chest. Mild bilateral gynecomastia. Lipoma noted in posterior musculature of the left upper chest. ABDOMEN and PELVIS: Exam is mildly limited by motion. Liver: Evaluation limited without present on prior examinations. There are large areas of decreased perfusion in the liver. There is a focal low-attenuation lesion in the anterior right lobe measuring 7.4 cm. There is a low-attenuation lesion in the posterior right lobe measuring 8.3 cm. This causes attenuation of the hepatic vein. Portions of the hepatic vein are not opacified. There is some high density material within the lesion which may be secondary to previous ablation procedure. The posterior portal vein branch also appears occluded. No thrombus is noted within the portal or splenic vein. No active hemorrhage is visible. Gallbladder and biliary tract: No evidence of stones or wall thickening. No biliary dilatation. Pancreas: Normal density, no abnormal calcifications or inflammatory process. Spleen: Normal. Kidneys: Normal size, contour and axis. No radiodense stones. No obstructive uropathy. No suspicious masses seen. Adrenal glands: No masses seen. Aorta: Abdominal portion non-dilated. Lymph nodes: Within normal limits. Soft tissues: Unremarkable. Bladder: Unremarkable. Bowel: No obstruction or bowel wall thickening. Moderate quantity of stool. The appendix appears normal. Peritoneal cavity: There is a moderate quantity of fluid in the pelvis with higher attenuation, likely hemorrhage. No area of active hemorrhage is identified. No focal collection. No mesenteric inflammatory response. No free air. Bones: Left hip prosthesis creates artifact. Mild compression of the superior endplate of L3. Reproductive organs: Unremarkable for age. IMPRESSION: Moderate right sided pleural effusion and adjacent atelectasis. No evidence of pulmonary emboli. Fluid in the pelvis is higher density than water, consistent with hemoperitoneum. No active hemorrhage is identified. Heterogeneous liver with 2 two large focal lesions, the posterior lesion causing occlusion of the posterior portal vein branch is well as posterior hepatic vein branches. No focal area of active hemorrhage is identified. The preliminary [facility] report was reviewed. RADIATION DOSE DELIVERED: Total DLP DATA REPOSITORY: All CT scans at this facility are submitted to the National Radiology Data Registry (NRDR) Dose Index Registry (DIR) with the [employer] (ACR). RADIATION OPTIMIZATION: All CT scans at this facility use at least one of these dose optimization techniques: automated exposure control; mA and/or kV adjustment per patient size (includes targeted exams where dose is matched to clinical indication); or iterative reconstruction.
--- NOTE | 2025-02-15 17:23 | DI.[facility]_ITS ---
PROCEDURE INFORMATION: Exam: XR Chest Exam date and time: 02/15/2025 5:05 PM Age: 74 years old Clinical indication: Other: Hypotension TECHNIQUE: Imaging protocol: Radiologic exam of the chest. Views: 1 view. COMPARISON: CR XR CHEST 2V PA LATERAL 06/22/2022 11:40 AM FINDINGS: Tubes, catheters and devices: Right Port-A-Cath in place. Lungs: There is mild elevation of the right hemidiaphragm with right lung volume loss. Mild bibasilar atelectasis, right worse than left. Pleural spaces: Possible trace right pleural effusion. Heart/Mediastinum: Unremarkable. No cardiomegaly. Vasculature: Aortic ectasia. Bones/joints: Unremarkable. IMPRESSION: Right lung hypoinflation. Possible small right effusion. Dictated and Authenticated by: Crista Monroy MD. Orderin Sreene Purcell MD
[2025-02-15 17:29] LABS: Troponin I 18 ng/L (<54)
[2025-02-15] MEDS: metroNIDAZOLE 500 MG/100 ML BAG 100 MG IVPB (17:37)
[2025-02-15] MEDS: Omnipaque 350 MG/ML 100 ML BTL IJ (18:08)
[2025-02-15] MEDS: Normal Saline - Diluent 50 ML VIAL IJ (18:15)
[2025-02-15] MEDS: Normal Saline Flush 10 ML SYR IVP (18:15)
--- NOTE | 2025-02-15 18:33 | DI.[facility]AD_ITS ---
Addendum created by Crista Monroy MD on 02/15/2025 6:38:24 PM EST: I discussed case findings with Binh Cast 02/15/2025 6:35 PM EST. On chest CTA the initial dynamic phase does reveal some increased attenuation within the areas of hepatic embolization, possible hematomas. Initial report created on 02/15/2025 6:32:54 PM EST: PROCEDURE INFORMATION: Exam: CTA Chest With Contrast CTA Abdomen With Contrast Exam date and time: 02/15/2025 6:00 PM Age: 74 years old Clinical indication: Other: Post op liver mass ablation, now hypotensive; Hypotension; Prior surgery; Surgery date: Post-operative (0-2 days) TECHNIQUE: Imaging protocol: Computed tomographic angiography of the chest with contrast. Exam focused on the arteries. Computed tomographic angiography of the abdomen with contrast. Exam focused on the arteries. 3D rendering (Not supervised by radiologist): MIP and/or 3D reconstructed images were created by the technologist. Contrast material: OMNIPAQUE 350; Contrast volume: 75 ml; Contrast route: INTRAVENOUS (IV); COMPARISON: CR XR PORTABLE CHEST AP 02/15/2025 5:05 PM FINDINGS: Tubes, catheters and devices: Right-sided Port-A-Cath in place. VASCULATURE: Pulmonary arteries: Normal. No pulmonary emboli. Aorta: No aortic aneurysm. No aortic dissection. Celiac and mesenteric arteries: No occlusion or significant stenosis. Renal arteries: No occlusion or significant stenosis. Veins: The right portal vein is not visualized, presumed post embolic change. CHEST: Lungs: There is a moderate-sized right pleural effusion with moderate atelectasis. Mild left lower lobe and lingular atelectasis noted. Pleural spaces: See Lungs finding. Heart: Unremarkable. No cardiomegaly. No pericardial effusion. Coronary arteries: Coronary artery calcifications/stents identified. ABDOMEN AND PELVIS: Liver: There are large geographic areas of decreased perfusion involving the liver. Anterior segment right lobe 1 region measures up to 7.4 cm. Posterior segment right lobe a 2nd dominant lesion measures 8.3 cm. There is heterogeneous hepatic perfusion and mild perihepatic fluid. No active hemorrhage is identified. There are stippled areas of radiopaque material consistent with embolization procedure within the liver. Gallbladder and biliary ducts: Unremarkable. No calcified stones. No ductal dilation. Pancreas: Unremarkable. No mass. No ductal dilation. Spleen: Unremarkable. No splenomegaly. Adrenal glands: Small left adrenal low-density lesion 1.6 cm. Kidneys: Unremarkable kidneys. No solid mass. No hydronephrosis. Stomach and bowel: Unremarkable. No obstruction. No mucosal thickening. Intraperitoneal space: There is moderate free fluid present in the deep pelvis. Attenuation is more dense than expected for simple free fluid. Urinary bladder: Contrast present in the bladder presumably from previous injection. Lymph nodes: Unremarkable. No enlarged lymph nodes. Bones/joints: Left hip prosthesis. Status post methacrylate injection T11. T12 compression deformity noted, nonacute. Soft tissues: There is a fat density lesion in the left thoracic paraspinous musculature extending to the subcapsular level consistent with lipoma. Mild gynecomastia. Other findings: Moderate atherosclerotic change noted in the vasculature. IMPRESSION: 1. Moderate-sized right effusion with atelectasis. 2. Ascites with increased density of concern for associated hemoperitoneum. There is perihepatic fluid. No definite source of hemorrhage is identified. Dictated and Authenticated by: Crista Monroy MD. Orderin Serene Purcell MD
[2025-02-15] MEDS: Lactated Ringers 1,000 ML 2000 ML IV (18:37)
[2025-02-15 20:16] LABS: Troponin I 19 ng/L (<54)
[2025-02-15 20:38] LABS: Glucose Negative (Negative)
[2025-02-15 20:47] LABS: C & S Indicated? No
--- NOTE | 2025-02-16 11:28 | NUR.NOTE ---
Nursing Note: Received call from patients Brother Sammy Trinidad looking to speak with patient as he was aware he came to the ED last night. Patients brother is on the HIPAA that was updated yesterday, he was updated that patient was transported to [facility] ED last evening.
== END 2025-02-15 20:24 | disposition short-term general hospital (02) ==
PROVIDERS: Emergency Provider General Practice
DX: N17.9 Acute kidney failure, unspecified (principal); R57.9 Shock, unspecified; R58 Hemorrhage, not elsewhere classified; D72.829 Elevated white blood cell count, unspecified; R74.01 Elevation of levels of liver transaminase levels; J90 Pleural effusion, not elsewhere classified; E87.20 Acidosis, unspecified
CPT/HCPCS: 36415; 71275; 74177; 80053; 82805; 83690; 86850; 86900; 86901; 87040; 93005; 96365; 96366; 96367; 99291; 71045; 81003; 81015; 83605; 83735; 83880; 84484; 85025; 85610; 85730; 93010; J0692; J1836; J3490